=== PATIENT | female | born 1990 | race Caucasian/White ===

== ENCOUNTER 2020-12-11 12:22 | Emergency (ER) | payer MEDICAID, SELFPAY ==
[2020-12-11 12:43] VITALS: BP 154/102; PULSE 98; RESP 18; TEMP 36.7; O2SAT 99; BMI 21.6
--- NOTE | 2020-12-11 14:09 | W.ED.BACK ---
HPI - Back Pain/Injury General: Chief Complaint: Back Pain/Injury Stated Complaint: BACK SPASMS Time Seen by Provider: 12/11/20 13:52 Source: patient Mode of arrival: ambulatory Limitations: no limitations History of Present Illness: HPI Narrative: Patient is a nice 30-year-old female who presents to ED today with complaints of midthoracic back pain that she states has been present over the past 14 years. She states pain began following an epidural during her . She states the area often spasms and feels nerve like . She also reports paresthesias around the site. She tells me she has been seen by her PCP Dr. Linares who recommended physical therapy. Patient states she was unhappy with this recommendation stating it is not a muscle problem . She tells me she contacted Dr. Green's office who felt like they could help but stated she required a referral thus prompting her visit today. She has no new complaints today. She seems upset and exhausted and just wants answers. MD elicited complaint: back pain Onset (ago): year(s) Timing: constant Quality: burning, tingling and spasming Location: thoracic spine Radiation: none Exacerbating factors: none Relieving factors: none Context: other (following epidural) Associated symptoms: Reports no associated symptoms; Deny abdominal pain, chills, dysuria, fatigue, fever(s), nausea or vomiting Work related injury: No Review of Systems Const: Denies: fever(s), chills, body aches, fatigue or malaise Card: Denies: chest pain Resp: Denies: dyspnea GI: Denies: abdominal pain, nausea or vomiting : Denies: flank pain or dysuria Musc: Reports: back pain; Denies: neck pain, extremity pain, extremity swelling, joint pain or joint swelling Skin/Breast: Denies: rash Neuro: Denies: headache(s), numbness in extremities, weakness in extremities, sensory changes or dizziness Physical Exam Const: COMMON NORMALS: no acute distress, average body habitus, patient oriented x3, no limitations, healthy appearing, alert and well nourished GENERAL APPEARANCE: cooperative ORIENTATION/CONSCIOUSNESS: Yes awake, Yes oriented to person, Yes oriented to place and Yes oriented to time HENMT: COMMON NORMALS: normocephalic and atraumatic HEAD & SCALP: normocephalic and atraumatic Neck/C-Spine: COMMON NORMALS: full ROM and no meningeal signs Back/Pelvis: THORACIC SPINE/UPPER BACK: Yes thoracic ROM normal LUMBAR SPINE/LOWER BACK: Yes normal to inspection and Yes lumbar ROM normal BACK IMAGE (FEMALE): 1. TTP Extremity: COMMON NORMALS: normal to inspection and full ROM GENERAL: Yes normal exam except as noted Neuro: COMMON NORMALS: patient oriented x3, moves all extremities, no focal motor deficits and no sensory deficits noted SENSORIUM/ORIENTATION: Yes alert, Yes oriented to person, Yes oriented to place and Yes oriented to time MENINGEAL SIGNS: Yes no meningeal signs Skin: COMMON NORMALS: no rashes or lesions noted GENERAL SKIN EXAM: no rashes or lesions noted TRAUMA: no lacerations or abrasions Course Vital Signs: Vital signs: Vital Signs Temperature 98.0 F 12/11/20 12:43 Pulse Rate 98 12/11/20 12:43 Respiratory Rate 18 12/11/20 12:43 Blood Pressure 154/102 12/11/20 12:43 Pulse Oximetry 99 12/11/20 12:43 MDM - Back Pain/Injury MDM Narrative: Medical decision making narrative: Patient is a nice 30-year-old female here for complaints of chronic mid to lower back pain following an epidural almost 14 years ago. Patient is almost in tears over the frustration that she cannot seem to alleviate this discomfort and does not have any answers on why. She is unhappy with her PCP care and referral to physical therapy. She feels like a referral to neurology might be a good place to start. I spoke to her about how I am really not sure what speciality would benefit her the most (pain management, Dr. Martinez/spine, or Dr. Green/neurology, etc). I agreed to refer her to Dr. Green and told her that she is very thorough and attentive and would offer assistance if she felt like this was appropriate. If not she could refer her to someone who might be able to help. Patient agrees with this plan. Discharge Plan Discharge Patient Disposition: Home Clinical Impression: Back pain Qualifiers: Back pain location: thoracic back pain Chronicity: chronic Back pain laterality: midline Qualified Code(s): M54.6 - Pain in thoracic spine Condition: Stable Discharge Orders: Discharge ED (Routine); Ordered 12/11/20 Ordered By: Deidra Kohli Referrals: Deyanira Linares MD [Primary Care Provider] - Coding Level of Care Code ED Drafter [employer] for Chg Fwd Exam Detailed
--- NOTE | 2020-12-11 15:32 | DCPLANNER ---
buffet manager had message to schedule a follow up appointment for patient with Dr. Green for chronic back pain / spasms following an epidural years ago. buffet manager emailed patients information to Lorri at Dr. Mariscal office. Patients information will be printed and reviewed. Clinic will call patient with appointment information.
--- NOTE | 2021-01-08 07:35 | DCPLANNER ---
Patient had a follow up appointment scheduled for 12.31.[address] Green - patient did attend appointment.
== END 2020-12-11 14:53 | disposition home or self-care (01) ==
PROVIDERS: Emergency Provider Physician Assistant; PCP Family Medicine
DX: G89.29 Other chronic pain (principal); M54.6 Pain in thoracic spine
CPT/HCPCS: 99281

== ENCOUNTER → 2020-12-31 09:07 | Outpatient (BNVA) | payer OTHER, MEDICAID, SELFPAY | PROVIDERS: PCP Family Medicine; Visit Provider Specialist | DX: M54.5 Low back pain (principal); M46.1 Sacroiliitis, not elsewhere classified; Z71.89 Other specified counseling | CPT/HCPCS: 99204 ==

== ENCOUNTER 2020-12-31 10:14 | Outpatient (CLI) | payer OTHER, MEDICAID, SELFPAY ==
--- NOTE | 2020-12-31 10:19 | XR_ITS ---
WS: [id number] Thoracic spine, 3 views, 12/31/2020 Clinical Data: M54.9 - Dorsalgia, unspecified Comparison: Thoracic spine, 10/13/2011. Findings: No compression fractures are seen. The disc heights are normal. The minimal upper thoracic levoscoliosis and lower thoracic dextroscoliosis has not changed. The para vertebral regions are normal. XR/XR thoracic spine 3V* [id number] Impression: No change in minimal scoliosis of the thoracic spine.
--- NOTE | 2020-12-31 10:19 | XR_ITS ---
WS: [id number] Lumbar spine, AP, lateral L5-S1 spot, both obliques, lateral view in neutral, flexion and extension p osition., 12/31/2020 Clinical Data: M54.9 - Dorsalgia, unspecified Comparison: None. Findings: No compression fractures or subluxation is seen. No disc space narrowing is seen. The transverse proc esses and SI joints are normal. The oblique films show no spondylolysis. On flexion and extension there is no limitation of motion or subluxation. There are clips in the right lower quadrant from surgery. XR/XR lumbar spine 6V w f/e [id number] Impression: 1. Negative lumbar spine. 2. Negative for spondylolysis. 3. Negative for limitation of motion or subluxation on flexion or extension.
== END 2020-12-31 10:15 | disposition home or self-care (01) ==
PROVIDERS: PCP Family Medicine; Visit Provider Specialist
DX: M54.6 Pain in thoracic spine (principal); M54.5 Low back pain
CPT/HCPCS: 72072; 72114

== ENCOUNTER → 2024-09-10 09:34 | Outpatient (BNVA) | payer OTHER, MEDICAID, SELFPAY | PROVIDERS: PCP Family Medicine; Visit Provider Nurse Practitioner Women's Health | DX: Z32.01 Encounter for pregnancy test, result positive (principal); N91.2 Amenorrhea, unspecified; N95.1 Menopausal and female climacteric states | CPT/HCPCS: 81025; 84702; 86850; 86900 ==

== ENCOUNTER → 2024-09-16 11:18 | Outpatient (BNVA) | payer MEDICAID, SELFPAY | PROVIDERS: PCP Family Medicine; Visit Provider Nurse Practitioner Women's Health | DX: Z36.89 Encounter for other specified antenatal screening (principal) | CPT/HCPCS: 76817 ==

== ENCOUNTER → 2024-09-23 09:22 | Outpatient (BNVA) | payer MEDICAID, SELFPAY | PROVIDERS: PCP Family Medicine; Visit Provider Nurse Practitioner Women's Health | DX: Z34.91 Encounter for supervision of normal pregnancy, unspecified, first trimester (principal) | CPT/HCPCS: 76817 ==

== ENCOUNTER → 2024-10-07 09:30 | Outpatient (BNVA) | payer MEDICAID, SELFPAY | PROVIDERS: PCP Family Medicine; Visit Provider Nurse Practitioner Women's Health | DX: Z34.80 Encounter for supervision of other normal pregnancy, unspecified trimester (principal) | CPT/HCPCS: 80307; 84315; 84443; 85025; 86592; 86762; 86803; 87086; 87340; 87491; 87591; 87661; 87806 ==

== ENCOUNTER → 2024-10-23 11:00 | Outpatient (BNVA) | payer MEDICAID, SELFPAY | PROVIDERS: PCP Family Medicine; Visit Provider Obstetrics & Gynecology | DX: Z34.90 Encounter for supervision of normal pregnancy, unspecified, unspecified trimester (principal) | CPT/HCPCS: 84315; 87624 ==

== ENCOUNTER → 2024-11-18 08:42 | Outpatient (BNVA) | payer MEDICAID, SELFPAY | PROVIDERS: PCP Family Medicine; Visit Provider Nurse Practitioner Women's Health | DX: O09.90 Supervision of high risk pregnancy, unspecified, unspecified trimester (principal) | CPT/HCPCS: 82105; 84315 ==

== ENCOUNTER → 2024-11-28 15:19 | Outpatient (BNVA) | payer MEDICAID, SELFPAY | PROVIDERS: PCP Family Medicine; Visit Provider Nurse Practitioner Women's Health | DX: Z36.9 Encounter for antenatal screening, unspecified (principal) | CPT/HCPCS: 76805 ==

== ENCOUNTER → 2024-12-19 12:19 | Outpatient (BNVA) | payer MEDICAID, SELFPAY | PROVIDERS: PCP Family Medicine; Visit Provider Obstetrics & Gynecology | DX: Z36.9 Encounter for antenatal screening, unspecified (principal) | CPT/HCPCS: 76805 ==

== ENCOUNTER → 2024-12-25 08:06 | Outpatient (BNVA) | payer MEDICAID, SELFPAY | PROVIDERS: PCP Family Medicine; Visit Provider Obstetrics & Gynecology | DX: O09.899 Supervision of other high risk pregnancies, unspecified trimester (principal) | CPT/HCPCS: 84315 ==

== ENCOUNTER → 2025-01-13 14:20 | Outpatient (BNVA) | payer MEDICAID, SELFPAY | PROVIDERS: PCP Family Medicine; Visit Provider Nurse Practitioner Women's Health | DX: Z34.90 Encounter for supervision of normal pregnancy, unspecified, unspecified trimester (principal) | CPT/HCPCS: 84315 ==

== ENCOUNTER → 2025-01-16 15:20 | Outpatient (BNVA) | payer MEDICAID, SELFPAY | PROVIDERS: PCP Family Medicine; Visit Provider Obstetrics & Gynecology | DX: Z36.9 Encounter for antenatal screening, unspecified (principal) | CPT/HCPCS: 76816 ==

== ENCOUNTER → 2025-02-12 08:59 | Outpatient (BNVA) | payer MEDICAID, SELFPAY | PROVIDERS: PCP Family Medicine; Visit Provider Obstetrics & Gynecology | DX: Z34.90 Encounter for supervision of normal pregnancy, unspecified, unspecified trimester (principal); Z3A.28 28 weeks gestation of pregnancy | CPT/HCPCS: 82950; 84315; 85025 ==

== ENCOUNTER → 2025-02-18 13:26 | Outpatient (BNVA) | payer MEDICAID, SELFPAY | PROVIDERS: PCP Family Medicine; Visit Provider Nurse Practitioner Women's Health | DX: Z34.90 Encounter for supervision of normal pregnancy, unspecified, unspecified trimester (principal); Z3A.28 28 weeks gestation of pregnancy | CPT/HCPCS: 76816; 76820 ==

== ENCOUNTER → 2025-02-26 13:39 | Outpatient (BNVA) | payer MEDICAID, SELFPAY | PROVIDERS: PCP Family Medicine; Visit Provider Obstetrics & Gynecology | DX: Z34.90 Encounter for supervision of normal pregnancy, unspecified, unspecified trimester (principal) | CPT/HCPCS: 84315 ==